=== PATIENT | female | born 2000 | race African-American/Black ===

== ENCOUNTER 2021-10-01 00:14 | Emergency (ER) | payer OTHER | END 2021-10-01 01:05 | disposition home or self-care (01) | LOC: CSHERS 00:14 | DX: O9A.212 Injury, poisoning and certain other consequences of external causes complicating pregnancy, second trimester (principal); M25.511 Pain in right shoulder; R10.9 Unspecified abdominal pain; Y04.2XXA Assault by strike against or bumped into by another person, initial encounter; Y92.89 Other specified places as the place of occurrence of the external cause; Z3A.26 26 weeks gestation of pregnancy ==

== ENCOUNTER → 2021-11-05 | Day surgery (SDC) | payer OTHER | LOC: CSHSDC/OP 09:19 | PROVIDERS: ATTEND Obstetrics & Gynecology | DX: O36.0190 Maternal care for anti-D [Rh] antibodies, unspecified trimester, not applicable or unspecified (principal); Z3A.00 Weeks of gestation of pregnancy not specified ==

== ENCOUNTER 2021-11-19 10:33 | Emergency (ER) | payer OTHER ==
[2021-11-19] MEDS ORDERED: Lidocaine 1% w/Epinephrine 1:100K 20 ML VIAL ONE (12:05)
== END 2021-11-19 12:50 | disposition home or self-care (01) ==
LOC: CSHERS 10:33
DX: N75.1 Abscess of Bartholin's gland (principal); J45.909 Unspecified asthma, uncomplicated
CPT/HCPCS: 56405; 87070; 87205

== ENCOUNTER 2021-11-21 11:26 | Day surgery (SDC) | payer OTHER ==
[2021-11-21 13:12] VITALS: BMI 24.3
[2021-11-21] MEDS ORDERED: hydrALAZINE 20 MG/ML VIAL SLOW IVP PRN (14:09)
== END 2021-11-21 13:50 | disposition home health service, planned readmission (86) ==
LOC: CSHLD/OP 11:26
PROVIDERS: ATTEND Obstetrics & Gynecology
DX: O99.891 Other specified diseases and conditions complicating pregnancy (principal); R53.1 Weakness; O24.419 Gestational diabetes mellitus in pregnancy, unspecified control; Z3A.33 33 weeks gestation of pregnancy
CPT/HCPCS: 36416

== ENCOUNTER 2021-11-29 17:33 | Emergency (ER) | payer OTHER ==
[2021-11-29] MEDS ORDERED: Lidocaine 1% (PF) 30 ML VIAL ONE (18:09)
== END 2021-11-29 18:50 | disposition home or self-care (01) ==
LOC: CSHERS 17:33
DX: O23.593 Infection of other part of genital tract in pregnancy, third trimester (principal); Z3A.32 32 weeks gestation of pregnancy
CPT/HCPCS: 56405; J2001

== ENCOUNTER 2021-12-29 21:03 | Inpatient (IN) | payer OTHER ==
[~2021-12-29 21:03] MED LIST: Bupivacaine PF 0.5% 30 ML VIAL ONE; Lidocaine 2% MPF 10 ML AMP (For Epidural Use) ONE
[2021-12-29 21:30] VITALS: BMI 27.3
[2021-12-29] MEDS ORDERED: hydrALAZINE 20 MG/ML VIAL SLOW IVP PRN ×2 (22:41→23:37)
[2021-12-29] MEDS ORDERED: Ondansetron PF 4 MG/2 ML Vial IVP SCH (22:45)
[2021-12-29] MEDS ORDERED: Morphine 10 MG/ML VIAL ONE (23:03)
[2021-12-29] MEDS ORDERED: Ibuprofen 800 MG TAB PO PRN (23:37)
[2021-12-29] MEDS ORDERED: HYDROcodone/Acetaminophen 5/325 mg Tablet PO PRN (23:37)
[2021-12-29] MEDS ORDERED: Ondansetron PF 4 MG/2 ML Vial IVP PRN (23:37)
[2021-12-29] MEDS ORDERED: Promethazine HCl 25 MG/ML VIAL IM PRN (23:37)
[2021-12-29] MEDS ORDERED: Misoprostol 200 MCG TAB PR PRN (23:37)
[2021-12-29] MEDS ORDERED: Diphenoxylate HCl/Atropine Tablet PO PRN ×2 (23:37)
[2021-12-29] MEDS ORDERED: Butorphanol Tartrate 1 MG/ML VIAL SLOW IVP PRN (23:37)
[2021-12-29] MEDS ORDERED: Lidocaine 1% (PF) 30 ML VIAL SC PRN (23:37)
[2021-12-29] MEDS ORDERED: Acetaminophen 500 MG TAB PO PRN (23:37)
[2021-12-29] MEDS ORDERED: Carboprost 250 MCG/ML AMP IM PRN (23:37)
[2021-12-29] MEDS ORDERED: Methylergonovine 0.2 MG/ML VIAL IM PRN (23:37)
[2021-12-29] MEDS ORDERED: Penicillin G Potassium 5 MILL.UNITS in Sodium Chloride 0.9% 100 ML IVPB SCH (23:45)
[2021-12-29] MEDS ORDERED: Morphine 10 MG/ML VIAL SLOW IVP SCH (23:45)
[2021-12-29] MEDS ORDERED: Lactated Ringer's 1,000 ML IV SCH (23:59)
[2021-12-29] MEDS ORDERED: NS w/ Oxytocin 30 units 500 ML IV SCH ×2 (23:59)
[2021-12-30 00:34] LABS: Hemoglobin 8.2 g/dL (12.0-15.5); Mean Corpuscular HGB CONC 32.5 g/dL (32.0-36.0); Mean Corpuscular Hemoglobin 23.6 pg (27.0-33.0); Mean Corpuscular Volume 72.6 fl (81.6-98.3); Mean Platelet Volume 11.8 fl (7.4-10.4); Platelet Count 151 10x3/uL (150-450); RBC Distribution Width 15.9 % (11.5-14.5); Red Blood Cell (RBC) Count 3.47 10x6/uL (3.90-5.03); White Blood Cell (WBC) Count 15.8 10x3/uL (3.5-10.5)
[2021-12-30 01:03] LABS: HIV (1/2) Antibody/Antigen Non-Reactive (NonReactive); HIV 1/2 INDEX 0.12 S/CO (<1.00); Hep B Surf Ag Non-Reactive S/CO (NonReactive); Syphilis Antibody Nonreactive (Nonreactive); Syphilis Antibody Index 0.07 S/CO (<1.00 Non-Reactive)
[2021-12-30 01:25] LABS: SARS-CoV-2 NAA Rapid Test Not Detected (NotDetected)
[2021-12-30 02:33] LABS: HBSAg Index 0.22 S/CO (0-0.99)
[2021-12-30] MEDS: Penicillin G 2.5 MILL.units 2.5 MILL.UNITS in Premix Bag 1 BAG IVPB SCH ×3 (03:52→13:00)
[2021-12-30] MEDS ORDERED: Fentanyl 2 mcg/Bup 0.1% Cadd 100 ML ONE (09:17)
[2021-12-30] MEDS ORDERED: Bupivacaine 0.25% HCL 30 ML VIAL ONE (09:43)
[2021-12-30] MEDS ORDERED: Promethazine HCl 25 MG/ML VIAL IM PRN ×3 (10:08→22:03)
[2021-12-30] MEDS ORDERED: Moisturizing Cream (Eucerin) 113 GM JAR TOP PRN ×2 (10:08→19:43)
[2021-12-30] MEDS ORDERED: Acetaminophen 325 MG TAB PO PRN (10:08)
[2021-12-30] MEDS ORDERED: Naloxone HCl 0.4 mg/ml Vial IVP PRN ×4 (10:08→19:43)
[2021-12-30] MEDS ORDERED: diphenhydrAMINE 50 MG/ML VIAL IVP PRN ×2 (10:08→19:43)
[2021-12-30] MEDS ORDERED: ePHEDrine Sulfate 50 MG/10 ML VIAL SLOW IVP PRN (10:08)
[2021-12-30] MEDS ORDERED: Ondansetron PF 4 MG/2 ML Vial IVP PRN ×3 (10:08→22:03)
[2021-12-30] MEDS ORDERED: Lactated Ringer's 500 ML IV PRN (10:08)
[2021-12-30] MEDS ORDERED: Fentanyl 2 mcg/Bupivacaine 0.1% Cassette 100 ML EPIDURAL SCH (10:15)
[2021-12-30] MEDS ORDERED: Communication Order-Pharmacy FS SCH ×2 (10:15→19:45)
[2021-12-30] MEDS ORDERED: Fentanyl 100 MCG/2 ML VIAL ONE (17:33)
[2021-12-30] MEDS ORDERED: Misoprostol 200 MCG TAB ONE (18:19)
[2021-12-30] MEDS ORDERED: Azithromycin 500 MG VIAL ONE (18:19)
[2021-12-30] MEDS ORDERED: Methylergonovine 0.2 MG/ML VIAL ONE (18:19)
[2021-12-30] MEDS ORDERED: Ondansetron PF 4 MG/2 ML Vial ONE (18:22)
[2021-12-30] MEDS ORDERED: PHENYLEPHRINE-NS 100 MCG/ML 10 ML SYRINGE ONE (18:22)
[2021-12-30] MEDS ORDERED: Morphine PF 10 MG/10 ML VIAL ONE (18:22)
[2021-12-30] MEDS ORDERED: Oxytocin 10 UNITS/ML VIAL ONE (18:22)
[2021-12-30] MEDS ORDERED: Dexamethasone 4 mg/ml Vial ONE (18:22)
[2021-12-30] MEDS ORDERED: Lidocaine 2% PF 100 mg/5 ml Syringe ONE (18:27)
[2021-12-30] MEDS ORDERED: L&D-Morphine 4 MG/ML VIAL SLOW IVP PRN (19:43)
[2021-12-30] MEDS ORDERED: Naloxone HCl 0.4 mg/ml Vial IV PRN (19:43)
[2021-12-30] MEDS ORDERED: Meperidine HCl/PF 25 MG/ML VIAL SLOW IVP PRN (19:43)
[2021-12-30] MEDS ORDERED: Ondansetron HCl/PF 4 MG/2 ML Vial IVP PRN (19:43)
[2021-12-30] MEDS ORDERED: Promethazine HCl 25 MG SUPP PR PRN (19:43)
[2021-12-30] MEDS ORDERED: Fentanyl 100 MCG/2 ML VIAL SLOW IVP PRN (19:43)
[2021-12-30] MEDS ORDERED: Ketorolac Tromethamine 30 MG/ML VIAL IVP SCH (19:45)
[2021-12-30] MEDS ORDERED: Meperidine HCl/PF 25 MG/ML VIAL ONE (21:45)
[2021-12-30] MEDS ORDERED: Varicella virus, LIVE 0.5 ML VIAL SC ONE (22:03)
[2021-12-30] MEDS ORDERED: hydrALAZINE 20 MG/ML VIAL SLOW IVP PRN (22:03)
[2021-12-30] MEDS ORDERED: Zolpidem Tartrate 5 MG TAB PO PRN (22:03)
[2021-12-30] MEDS ORDERED: HYDROcodone/Acetaminophen 5/325 mg Tablet PO PRN ×2 (22:03)
[2021-12-30] MEDS ORDERED: Bisacodyl 10 MG SUPP PR PRN (22:03)
[2021-12-30] MEDS ORDERED: diphenhydrAMINE 25 MG CAP PO PRN (22:03)
[2021-12-30] MEDS ORDERED: Lanolin Ointment 7 GM TUBE TOP PRN (22:03)
[2021-12-30] MEDS ORDERED: Measles/Mumps/Rubella 10 MCG/0.5 ML VIAL SC ONE (22:03)
[2021-12-30] MEDS ORDERED: Boostrix 0.5 ML (Tdap) VIAL IM ONE (22:03)
[2021-12-30] MEDS ORDERED: Misoprostol 200 MCG TAB PR PRN (22:03)
[2021-12-30] MEDS ORDERED: Docusate 100 MG CAP PO SCH (22:15)
[2021-12-30] MEDS ORDERED: NS w/ Oxytocin 30 units 500 ML IV SCH (22:15)
[2021-12-30] MEDS ORDERED: Ferrous Sulfate 325 MG TAB PO SCH (22:15)
[2021-12-31 06:49] LABS: Platelet Count 148 10x3/uL (150-450)
[2021-12-31 06:50] LABS: Hemoglobin 9.8 g/dL (12.0-15.5); Mean Corpuscular Hemoglobin 23.7 pg (27.0-33.0); Mean Corpuscular Volume 71.9 fl (81.6-98.3); Mean Platelet Volume 12.2 fl (7.4-10.4); RBC Distribution Width 16.1 % (11.5-14.5); Red Blood Cell (RBC) Count 4.13 10x6/uL (3.90-5.03); White Blood Cell (WBC) Count 17.2 10x3/uL (3.5-10.5)
[2021-12-31] MEDS: Docusate 100 MG CAP PO SCH ×2 (08:21→21:34)
[2021-12-31] MEDS: Ferrous Sulfate 325 MG TAB PO SCH ×2 (08:21→21:35)
[2021-12-31] MEDS: Prenatal Vitamin 1 TAB PO SCH (08:21)
[2021-12-31] MEDS: Ketorolac Tromethamine 30 MG/ML VIAL IVP PRN ×2 (08:21→14:35)
[2021-12-31] MEDS: Simethicone Chewable 80 MG TAB PO PRN ×2 (08:22→14:45)
[2021-12-31] MEDS: Ibuprofen 800 MG TAB PO SCH (21:36)
[2022-01-01] MEDS: Ibuprofen 800 MG TAB PO SCH ×2 (05:55→13:43)
[2022-01-01] MEDS ORDERED: Ibuprofen 800 MG TAB PO SCH (06:00)
[2022-01-01] MEDS: Prenatal Vitamin 1 TAB PO SCH (08:26)
[2022-01-01] MEDS: Docusate 100 MG CAP PO SCH (08:26)
[2022-01-01] MEDS: Ferrous Sulfate 325 MG TAB PO SCH (08:26)
[2022-01-01 11:51] VITALS: BP 123/75; TEMP 98.4
== END 2022-01-01 15:00 | disposition home or self-care (01) | DRG 787 ==
LOC: CSHLD/OP 21:03 → CSHLD 23:55 → CSHPP 12-30 22:56
PROVIDERS: ADMIT Obstetrics & Gynecology; ATTEND Obstetrics & Gynecology
PROC: 10D00Z1 Extraction of Products of Conception, Low, Open Approach (ICD-10-PCS; principal; 2021-12-30)
PROC: 3E0334Z Introduction of Serum, Toxoid and Vaccine into Peripheral Vein, Percutaneous Approach (ICD-10-PCS; 2021-12-31)
DX: O23.593 Infection of other part of genital tract in pregnancy, third trimester (principal); N75.1 Abscess of Bartholin's gland; Z20.822 Contact with and (suspected) exposure to COVID-19; Z3A.37 37 weeks gestation of pregnancy; Z37.0 Single live birth; O76 Abnormality in fetal heart rate and rhythm complicating labor and delivery; O26.893 Other specified pregnancy related conditions, third trimester; Z67.11 Type A blood, Rh negative
CPT/HCPCS: 36415; 51702; 85027; 85461; 86780; 86850; 86900; 86901; 87340; 87389; 90384; 96372; 99285; J1100; J1885; J2175; J2270; J2274; J2405; J2540; J2590; J3490; S0020; U0002